=== PATIENT | female | born 1930 | race American Indian/Alaskan Native ===

== ENCOUNTER 2019-11-11 06:19 | Day surgery (SDC) | payer MEDICARE ==
[2019-11-01 15:55] LABS: Absolute Lymphocytes (CBC) 0.8 K/uL (0.7-4.9); Basophils % 0.8 % (0-1.3); Hematocrit 33.3 % (36.0-45.0); Lymphocytes % 9.2 % (15.3-44.8); MPV 7.4 fL (7.6-11.3); Potassium 3.9 mmol/L (3.5-5.1); RBC Red Blood Cell Count 3.49 M/uL (3.86-4.86)
--- NOTE | 2019-11-01 18:43 | EKG ---
Test Date: 2019-11-01 Test Time: 14:54:49 Farm Equipment Operator: MELONIE MEASUREMENT RESULTS: Intervals: Rate: 63 DC: 138 QRSD: 80 QT: 404 QTc: 413 [place]: P: 101 DC: 138 QRS: 78 T: 79 INTERPRETIVE STATEMENTS: Normal sinus rhythm Normal ECG No previous ECG available for comparison Electronically Signed On 11-01-19 18:43:01 VISCOSITY INSPECTOR by Galo Loredo
[2019-11-11] MEDS ORDERED: CEFAZOLIN/SWI 1gm 1 GM/10 ML SYR ONE (07:00)
[2019-11-11] MEDS ORDERED: Ringers Lactate 1,000 ML IV ONE (07:00)
[2019-11-11] MEDS ORDERED: FENTANYL CITR 100 MCG/2 ML ONE ×2 (07:15→08:23)
[2019-11-11] MEDS ORDERED: propofoL 200 MG/20 ML VIAL IV ONE (07:15)
[2019-11-11] MEDS ORDERED: LIDOCAINE 2% MPF 5 ML VIAL ONE (07:16)
[2019-11-11] MEDS ORDERED: MIDAZOLAM HCL 2 MG/2 ML INJ ONE (07:16)
[2019-11-11] MEDS ORDERED: ONDANSETRON 4 MG/2 ML VIAL ONE ×2 (07:19→11:32)
[2019-11-11] MEDS ORDERED: EPHEDRINE SULF 50 MG/ML VIAL ONE (07:37)
[2019-11-11] MEDS ORDERED: Phenylephrine HCl 10 MG/ML 1 ML VIAL ONE (07:37)
[2019-11-11] MEDS ORDERED: GLYCOPYRROLATE 0.2 MG/ML SYR ONE (08:23)
[2019-11-11] MEDS: HYDROMORPHONE HCL 1 MG/ML INJ ONE ×2 (09:39→09:44)
--- NOTE | 2019-11-11 09:43 | OP ---
Date of Procedure: 11/11/2019 Surgeon: Primo Baron MD Visitor Information Assistant: KANE Johnson Preoperative Diagnosis: Left breast cancer. Postoperative Diagnosis: Left breast cancer. Procedure: Left simple mastectomy. Estimated Blood Loss: Minimal. Specimen: Left breast margins negative. Anesthesia: General. Complications: None. Drains: PASCUAL #10 flat. Disposition: Patient tolerated the procedure in stable condition and taken to Recovery in good gener al condition. Description Of Procedure: Patient was brought to the OR, placed in supine position. General anesthe federico was begun. Patient was prepped and draped in usual sterile fashion. An ellipse of skin approxim ately 20 x 10 cm made around the nipple-areolar complex. The mass was palpated near the 1 o'clock po sition and margins were generously done on that side. Subcutaneous tissue divided. Flaps created heath periorly to the clavicle, medially to the sternal border, inferiorly to the insertion of the rectus a bdominis muscle, and laterally to the anterior border of the latissimus dorsi and all breast tissue o ff the pectoralis fascia was removed, sent to Pathology. Frozen section revealed margins to be free. Wound was irrigated. Bleeding controlled with cautery. Dheeraj-Lucas drain #10 flat placed and se cured with 3-0 nylon and then 2-0 chromic, 3-0 chromic used to approximate the subcutaneous tissue an d close the skin. Sterile dressing was applied. Patient was awakened and taken to Recovery in good general condition. Discharge Note: Patient will go to Day Surgery and home when stable. Disposition: Home. Condition: Stable. Discharge Instructions: Resume home medications and diet. Activity as tolerated. No heavy lifting. Keep dressing clean and dry. Sponge bathe only. Incentive spirometry as ordered. Tylenol No. 3 o ne tablet p.o. q.4 p.r.n. pain, Keflex 500 mg p.o. q.6. Follow up in my office in 1 week. Call for appointment. Record PASCUAL output q.12. /MODL Voice ID: [id number] Report ID: [id number]
[2019-11-11] MEDS ORDERED: ONDANSETRON 4 MG/2 ML VIAL IV ONE (11:30)
[2019-11-11 13:45] VITALS: BP 161/93; TEMP 97; O2SAT 98
== END 2019-11-11 12:05 | disposition home or self-care (01) ==
LOC: OR 06:19
PROVIDERS: ATTEND Surgery
PROC: 0HTU0ZZ Resection of Left Breast, Open Approach (ICD-10-PCS; principal; 2019-11-11 07:30)
DX: C50.912 Malignant neoplasm of unspecified site of left female breast (principal); Z17.1 Estrogen receptor negative status [ER-]; I10 Essential (primary) hypertension; Z85.118 Personal history of other malignant neoplasm of bronchus and lung; Z88.2 Allergy status to sulfonamides; Z82.49 Family history of ischemic heart disease and other diseases of the circulatory system
CPT/HCPCS: 19303; 93005; 85025; 80048; 36415; 88307; J2704; J3010 ×2; J1170; J0690; J7120; J2405 ×3; J2250; J2370